=== PATIENT | female | born 1975 | race Caucasian/White ===

== ENCOUNTER 2016-09-21 20:53 | Emergency (ER) | payer MEDICAID | END 2016-09-21 21:50 | disposition home or self-care (01) | LOC: D.ER 20:53 | DX: S39.012A Strain of muscle, fascia and tendon of lower back, initial encounter (principal); X58.XXXA Exposure to other specified factors, initial encounter; Y93.89 Activity, other specified; Y92.89 Other specified places as the place of occurrence of the external cause; F17.200 Nicotine dependence, unspecified, uncomplicated ==

== ENCOUNTER 2017-07-14 18:51 | Emergency (ER) | payer SELFPAY | END 2017-07-14 21:14 | disposition home or self-care (01) | LOC: D.ER 18:51 | DX: M54.5 Low back pain (principal) ==

== ENCOUNTER 2017-12-24 21:05 | Emergency (ER) | payer SELFPAY ==
[~2017-12-24] VITALS: Ht 162.6 cm; Wt 72.7 kg
[2017-12-24 21:13] VITALS: Ht 162.6 cm; Wt 72.7 kg
[2017-12-24 22:59] LABS: APPEARANCE CLEAR (CLEAR); BILIRUBIN NEGATIVE (NEGATIVE); COLOR YELLOW (YELLOW); GLUCOSE NEGATIVE (NEGATIVE); KETONE NEGATIVE (NEGATIVE); NITRITE NEGATIVE (NEGATIVE); PROTEIN NEGATIVE (NEGATIVE); RED CELLS - URINE 0-5 /hpf (0-5); UROBILINOGEN NORMAL (NORMAL); WHITE CELLS - URINE 0-5 /hpf (0-5)
[2017-12-25] MEDS ORDERED: VOLTAREN75 MG PO (00:02)
[2017-12-25] MEDS ORDERED: ROBAXIN-750750 MG PO (00:02)
[2017-12-25 00:22] VITALS: BP 105/56
== END 2017-12-25 00:23 | disposition home or self-care (01) ==
LOC: D.ER 21:05
PROVIDERS: Family Medicine
DX: M54.5 Low back pain (principal); M62.830 Muscle spasm of back; F17.200 Nicotine dependence, unspecified, uncomplicated

== ENCOUNTER 2017-12-27 14:37 | Emergency (ER) | payer SELFPAY ==
[~2017-12-27] VITALS: Ht 162.6 cm; Wt 77.3 kg
[~2017-12-27 14:37] MED LIST: ROBAXIN-750750 MG PO; VOLTAREN75 MG PO
[2017-12-27 14:44] VITALS: Ht 162.6 cm; Wt 77.3 kg
[2017-12-27] MEDS ORDERED: CYCLOBENZAPRINE10 MG PO (15:59)
[2017-12-27 18:29] VITALS: BP 107/58
== END 2017-12-27 16:47 | disposition home or self-care (01) ==
LOC: D.ER 14:37
DX: M54.5 Low back pain (principal); M79.1 Myalgia

== ENCOUNTER 2018-07-03 14:32 | Emergency (ER) | payer SELFPAY ==
[~2018-07-03] VITALS: Ht 162.6 cm; Wt 81.8 kg
[~2018-07-03 14:32] MED LIST changes: +CYCLOBENZAPRINE10 MG PO
[2018-07-03 14:43] VITALS: BP 109/73; Ht 162.6 cm; Wt 81.8 kg
== END 2018-07-03 17:51 | disposition left against medical advice (07) ==
LOC: D.ER 14:32
DX: R50.9 Fever, unspecified (principal); R05 Cough

== ENCOUNTER 2019-10-06 18:58 | Emergency (ER) | payer MEDICAID ==
[~2019-10-06] VITALS: Ht 162.6 cm; Wt 77.3 kg
[2019-10-06 19:06] VITALS: Ht 162.6 cm; Wt 77.3 kg
[2019-10-06 19:26] LABS: BASOPHILS 0 % (0-2); EOSINOPHILS 0.3 % (0-7); HEMATOCRIT 47.8 % (36.0-48.0); HEMOGLOBIN 16.3 g/dL (12-16); IMMATURE GRANULOCYTES 0.2 % (0-5); LYMPHOCYTES 25.9 % (15-50); MCH 33.5 pg (26.0-34.0); MCHC 34.1 g/dL (31.0-37.0); MCV 98.2 fL (80.0-100.0); MEAN PLATELET VOLUME 9.4 fL (7.4-10.4); MONOCYTES 6.9 % (2-11); NEUTROPHILS 66.7 % (40-80); PLATELET COUNT 221 10x3/uL (130-400); RBC 4.87 10x6/uL (4.00-5.40); RDW 15.2 % (11.5-14.5); WBC 8.8 10x3/uL (4.8-10.8)
[2019-10-06 19:29] LABS: BILIRUBIN NEGATIVE (NEGATIVE); GLUCOSE NEGATIVE (NEGATIVE); KETONE NEGATIVE (NEGATIVE); NITRITE NEGATIVE (NEGATIVE); UROBILINOGEN NORMAL (NORMAL)
[2019-10-06 19:36] LABS: BACTERIA FEW /hpf (NEGATIVE); GRANULAR CAST 0-5 /lpf (NONE SEEN); HYALINE CAST 0-5 /lpf (NONE SEEN); RED CELLS - URINE 0-5 /hpf (0-5); WHITE CELLS - URINE 0-5 /hpf (NEGATIVE)
[2019-10-06 19:46] LABS: ANION GAP 15.9 mmol/L (8-16); CALCIUM 8.9 mg/dL (8.5-10.1); CARBON DIOXIDE 23.4 mmol/L (21.0-32.0); CREATININE - SERUM 1.1 mg/dL (0.6-1.3); POTASSIUM - SERUM 3.3 mmol/L (3.5-5.1)
[2019-10-06 19:51] LABS: ALBUMIN 4.3 g/dL (3.4-5.0); BILIRUBIN - TOTAL 0.89 mg/dL (0.2-1.3); PROTEIN - SERUM 8.8 g/dL (6.4-8.2)
[2019-10-06] MEDS ORDERED: ZOFRAN ODT4 MG/UDTAB PO (20:35)
[2019-10-06] MEDS ORDERED: MACROBID100 MG PO (20:56)
[2019-10-06 21:03] VITALS: BP 125/77
== END 2019-10-06 21:06 | disposition home or self-care (01) ==
LOC: D.ER 18:58
PROVIDERS: Family Medicine
DX: R11.2 Nausea with vomiting, unspecified (principal); R53.1 Weakness